=== PATIENT | male | born 1990 | race Caucasian/White ===

== ENCOUNTER 2018-08-26 13:56 | Emergency (ER) | payer BC, OTHER ==
[2018-08-26 14:19] VITALS: BP 127/81; PULSE 58; TEMP 98.3; BMI 24.4
[2018-08-26] MEDS ORDERED: DIPHTH,PERTUSS(ACELL),TET 0.5 ML DISP.SYRIN IM ONE ×2 (14:25→14:28)
--- NOTE | 2018-08-26 14:26 | PDOC ---
History of Present Illness - General History Source: Patient Exam Limitations: No Limitations <Hung Hobson - Last Filed: 08/26/18 14:26> - History of Present Illness Initial Comments: 08/26/18 14:33 The patient is a 27 year old male with no past medical history who presents to the emergency department for evaluation of left index finger laceration. Patient reports being exposed to an unknown white substance after glass shards from a drug test vial broke against his hand while trying to test the identity of the substance at 11am. He denies any pain to the site. Denies numbness or tingling to site of left hand. Denies subsequently washings his hands. The patient states the prison guard supervisor of the white substance states the substance was chalk. 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 Patient states he is unsure of date of last tetanus shot. The patient denies chest pain, shortness of breath, headache, dizziness, fevers , chills, nausea, vomiting, and any bowel/urinary issues. Allergies: No known drug allergies Social History: No reported alcohol, cigarette, or drug use. Surgical History: None <Liliya Ann - Last Filed: 08/26/18 14:55> - General Chief Complaint: Non EmpBld/Body Flud Exposure Stated Complaint: EXPOSURE TO UNKNOWN SUBSTANCE Time Seen by Provider: 08/26/18 14:03 Past History - Past Medical History COPD: No Other medical history: PT DENIES - Suicide/Smoking/Psychosocial Hx Smoking Status: No Smoking History: Never smoked Number of Cigarettes Smoked Daily: 0 Hx Alcohol Use: Yes (socially) Drug/Substance Use Hx: No <Hung Hobson - Last Filed: 08/26/18 14:26> <Liliya Ann - Last Filed: 08/26/18 14:55> - Past Medical History Allergies/Adverse Reactions: Allergies Allergy/AdvReac Type Severity Reaction Status Date / Time No Known Allergies Allergy Verified 08/26/18 14:01 Home Medications: Ambulatory Orders NK [No Known Home Medication] 08/26/18 Review of Systems - Review of Systems Able to Perform ROS?: Yes Comments:: GENERAL/CONSTITUTIONAL: No fever or chills. No weakness. HEAD, EYES, EARS, NOSE AND THROAT: No change in vision. No ear pain or discharge. No sore throat. CARDIOVASCULAR: No chest pain or shortness of breath. RESPIRATORY: No cough, wheezing, or hemoptysis. GASTROINTESTINAL: No nausea, vomiting, diarrhea or constipation. GENITOURINARY: No dysuria, frequency, or change in urination. MUSCULOSKELETAL: (+)Left index abrasion. No joint or muscle swelling or pain. No neck or back pain. SKIN: No rash NEUROLOGIC: No headache, vertigo, loss of consciousness, or change in strength/ sensation. ENDOCRINE: No increased thirst. No abnormal weight change. HEMATOLOGIC/LYMPHATIC: No anemia, easy bleeding, or history of blood clots. ALLERGIC/IMMUNOLOGIC: No hives or skin allergy. <Liliya Ann - Last Filed: 08/26/18 14:55> *Physical Exam - Vital Signs Last Vital Signs Temp Pulse Resp BP Pulse Ox 98.3 F 58 L 18 127/81 98 08/26/18 13:59 08/26/18 13:59 08/26/18 13:59 08/26/18 13:59 08/26/18 13:59 <Hung Hobson - Last Filed: 08/26/18 14:26> - Vital Signs Last Vital Signs Temp Pulse Resp BP Pulse Ox 98.3 F 58 L 18 127/81 98 08/26/18 13:59 08/26/18 13:59 08/26/18 13:59 08/26/18 13:59 08/26/18 13:59 - Physical Exam Comments: GENERAL: Awake, alert, and fully oriented, in no acute distress HEAD: No signs of trauma EYES: PERRLA, EOMI, sclera anicteric, conjunctiva clear NECK: Normal ROM, supple EXTREMITIES: (+)small abrasion to left index finger. Normal range of motion, no edema. No clubbing or cyanosis. No cords, erythema, or tenderness NEUROLOGICAL: Cranial nerves II through XII grossly intact. Normal speech, normal gait SKIN: Warm, Dry, normal turgor, no rashes or lesions noted. <Liliya Ann - Last Filed: 08/26/18 14:55> Moderate Sedation - Procedure Monitoring Vital Signs: Procedure Monitoring Vital Signs Temperature 98.3 F 08/26/18 13:59 Pulse Rate 58 L 08/26/18 13:59 Respiratory Rate 18 08/26/18 13:59 Blood Pressure 127/81 08/26/18 13:59 O2 Sat by Pulse Oximetry (%) 98 08/26/18 13:59 <Hung Hobson - Last Filed: 08/26/18 14:26> - Procedure Monitoring Vital Signs: Procedure Monitoring Vital Signs Temperature 98.3 F 08/26/18 13:59 Pulse Rate 58 L 08/26/18 13:59 Respiratory Rate 18 08/26/18 13:59 Blood Pressure 127/81 08/26/18 13:59 O2 Sat by Pulse Oximetry (%) 98 08/26/18 13:59 <Liliya Ann - Last Filed: 08/26/18 14:55> Medical Decision Making - Medical Decision Making 08/26/18 14:24 A portion of this note was written by my scribe, under my supervision. 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 The substance was placed in a small glass tool kit. While working with the kit, the glass shattered. No bodily substance involved. Pt cleansed with soap and water. After discussing with the patient, pt is extremely low risk for HIV and hepatitis. Will not start PEP. Pt deferred on blood testing, which I agree with. 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 Cleared medically. No glass observed in pt's finger. <Hung Hobson - Last Filed: 08/26/18 14:26> *DC/Admit/Observation/Transfer - Discharge Dispostion Decision to Admit order: No <Hung Hobson - Last Filed: 08/26/18 14:26> - Attestations Scribe Attestion: Documentation prepared by Liliya Ann, acting as director global medical affairs for Hung Hobson MD. <Liliya Ann - Last Filed: 08/26/18 14:55> Diagnosis at time of Disposition: Work related injury - Discharge Dispostion Disposition: HOME Condition at time of disposition: Stable - Referrals - Patient Instructions Printed Discharge Instructions: How to Handle Body Fluid Exposure -- Non- Healthcare Worker (At Home, [facility] Additional Instructions: You have received a tetanus booster today. You are medically cleared to return to work. 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 - Post Discharge Activity Forms/Work/School Notes: Back to Work
== END 2018-08-26 14:40 | disposition home or self-care (01) ==
LOC: FER 13:56
PROC: 3E0234Z Introduction of Serum, Toxoid and Vaccine into Muscle, Percutaneous Approach (ICD-10-PCS; principal; 2018-08-26)
DX: S61.211A Laceration without foreign body of left index finger without damage to nail, initial encounter (principal); Z77.098 Contact with and (suspected) exposure to other hazardous, chiefly nonmedicinal, chemicals; W25.XXXA Contact with sharp glass, initial encounter; Y93.89 Activity, other specified; Y92.9 Unspecified place or not applicable; Y99.0 Civilian activity done for income or pay
CPT/HCPCS: 90715; 99282-25